=== PATIENT | female | born 1950 | race Caucasian/White ===

== ENCOUNTER 2018-02-27 11:50 | Outpatient (CLI) | payer MEDICARE, OTHER ==
[~2018-02-27] VITALS: Ht 157.5 cm; Wt 88.6 kg
[2018-02-27] MEDS ORDERED: AMLO5TAB2 PO (12:11)
[2018-02-27] MEDS ORDERED: ASPI-999 PO (12:11)
[2018-02-27] MEDS ORDERED: FLAX1CAP6 PO (12:11)
[2018-02-27] MEDS ORDERED: DIAZ5TAB3 PO (12:11)
[2018-02-27] MEDS ORDERED: HYDR-3812 PO (12:11)
[2018-02-27] MEDS ORDERED: HYDR25TA4 PO (12:11)
[2018-02-27] MEDS ORDERED: CARV12.53 PO (12:11)
[2018-02-27] MEDS ORDERED: UBID100C44 PO (12:11)
[2018-02-27] MEDS ORDERED: CYCL10TA9 PO (12:11)
[2018-02-27 12:18] VITALS: BP 152/88
[2018-02-27] MEDS ORDERED: ASPI-983 PO (14:07)
[2018-02-27] MEDS ORDERED: FURO20TA4 PO (14:07)
[2018-03-02] MEDS ORDERED: FURO-125 PO (10:51)
== END 2018-02-27 14:49 | disposition home or self-care (01) ==
LOC: PREOP 11:50
PROVIDERS: ATTEND Orthopaedic Surgery
DX: Z01.818 Encounter for other preprocedural examination (principal)
CPT/HCPCS: 87081

== ENCOUNTER 2018-03-05 09:58 | Inpatient (IN) | payer OTHER, MEDICARE ==
[~2018-03-05] VITALS: Ht 157.5 cm; Wt 88.6 kg
[~2018-03-05 09:58] MED LIST: AMLO5TAB2 PO; ASPI-983 PO; ASPI-999 PO; CARV12.53 PO; CYCL10TA9 PO; DIAZ5TAB3 PO; FLAX1CAP6 PO; FURO-125 PO; FURO20TA4 PO; HYDR-3812 PO; HYDR25TA4 PO; UBID100C44 PO
[2018-03-05] MEDS ORDERED: LACTATED RINGERS 1,000 ML IV PRN (10:03)
[2018-03-05 10:10] VITALS: BP 189/89
[2018-03-05] MEDS ORDERED: ceFAZolin 2 GM IV Premixed 50 ML IV ONE (10:15)
[2018-03-05] MEDS ORDERED: BACITRACIN 100,000 UNIT/NS 1000 ML POUR BOTTLE IR ONE ×2 (10:15)
[2018-03-05] MEDS ORDERED: NS IV 500 ML 500 ML IV ONE (10:20)
[2018-03-05] MEDS ORDERED: SUCCINYLCHOLINE INJ 100 MG/5 ML SYR ONE (10:57)
[2018-03-05] MEDS ORDERED: LIDOCAINE PF 2% 5 ML (XYLOCAINE) VIAL ONE (10:57)
[2018-03-05] MEDS ORDERED: DEXAMETHASONE 10 MG/ML (DECADRON) 1 ML VIAL ONE (10:57)
[2018-03-05] MEDS ORDERED: ROCURONIUM 10 MG/ML 5 ML SYRINGE IV ONE (10:57)
[2018-03-05] MEDS ORDERED: ONDANSETRON 4 MG/2 ML (SDV) Z0FRAN ONE (10:57)
[2018-03-05] MEDS ORDERED: PROPOFOL INJECTION 0 ML IV ONE (10:57)
[2018-03-05] MEDS ORDERED: MIDAZOLAM 2 MG/2 ML (VERSED) VIAL ONE (10:58)
[2018-03-05] MEDS ORDERED: fentaNYL INJECTION 100 MCG/2 ML AMP ONE ×3 (10:58→12:59)
[2018-03-05] MEDS ORDERED: PROPOFOL INJECTION 50 ML IV ONE (11:02)
[2018-03-05] MEDS ORDERED: SEVOFLURANE (ULTANE) 15 ML INHAL SOLN ONE ×3 (12:56→13:51)
[2018-03-05] MEDS ORDERED: proPOfol 200 MG/20 ML (DIPRIVAN) VIAL IV ONE ×3 (13:20→14:01)
[2018-03-05] MEDS ORDERED: morphine INJ 10 MG/ML 1ML (SYR OR VIAL) IM PRN (14:45)
[2018-03-05] MEDS ORDERED: NON-FORMULARY MEDICATION 1 EA EA (Diazepam 5 MG) PO PRN (14:45)
[2018-03-05] MEDS ORDERED: DOCUSATE SODIUM 100 MG (COLACE) CAP PO PRN (14:45)
[2018-03-05] MEDS ORDERED: BISACODYL 5 MG (DULCOLAX) TABLET PO PRN (14:45)
[2018-03-05] MEDS ORDERED: FAMOTIDINE 20 MG (PEPCID) TABLET PO SCH (14:45)
[2018-03-05] MEDS ORDERED: oxyCODONE/APAP 5/325MG (PERCOCET 5) TABLET PO PRN (14:45)
[2018-03-05] MEDS ORDERED: ONDANSETRON 4 MG/2 ML (SDV) Z0FRAN IV PRN (14:45)
[2018-03-05] MEDS ORDERED: HYDROcodone/APAP 5 MG/325 MG (LORTAB) TAB PO PRN (14:45)
[2018-03-05] MEDS ORDERED: BISACODYL 10 MG SUPP (DULCOLAX) PR PRN (14:45)
[2018-03-05] MEDS ORDERED: ACETAMINOPHEN 325 MG TABLET/CAPLET (TYLENOL) PO PRN ×2 (14:45→17:15)
[2018-03-05] MEDS ORDERED: morphine INJ 10 MG/ML 1ML (SYR OR VIAL) ONE (14:55)
[2018-03-05] MEDS ORDERED: ONDANSETRON 4 MG/2 ML (SDV) Z0FRAN IVP PRN (15:00)
[2018-03-05] MEDS ORDERED: fentaNYL INJECTION 100 MCG/2 ML AMP IVP PRN (15:00)
[2018-03-05] MEDS ORDERED: HYDROmorphone 1 MG/ML (DILAUDID) 1 ML SYRINGE IV PRN (15:00)
[2018-03-05] MEDS ORDERED: MEPERIDINE (DEMEROL) INJ 50 MG/ML IVP PRN (15:00)
[2018-03-05] MEDS ORDERED: HYDROmorphone 1 MG/ML (DILAUDID) 1 ML SYRINGE ONE (15:07)
[2018-03-05 15:45] VITALS: BP 152/70
--- NOTE | 2018-03-05 16:04 | Diagnostic Imaging Report ---
INDICATION: Cervical spine surgery. FINDINGS: Fluoroscopy was provided in the OR during cervical spine surgery. A total of 15 seconds of fluoroscopy was utilized. Four images were obtained. There appear to be changes of C5 through C7 ACDF. IMPRESSION: Fluoroscopy for cervical spine surgery. Dictated by: Dictated on workstation # [id number]
[2018-03-05] MEDS ORDERED: DIAZEPAM 5 MG (VALIUM) TABLET PO PRN (17:00)
[2018-03-05] MEDS: ceFAZolin INJECTION 1,000 MG in NS (IVPB) 50 ML IV SCH (18:23)
[2018-03-05 19:00] VITALS: BP 183/79
--- NOTE | 2018-03-05 19:37 | OPERATIVE REPORT ---
DATE OF SERVICE: 03/05/2018 SURGEON: Omaira Lerma DO HEAT TREAT TECHNICIAN: ALIYAH Robbins This is a medically necessary procedure. An business support assistant is necessary for retraction of vital neurovascular structures. Without an business support assistant, the procedure would not be possible. PREOPERATIVE DIAGNOSES: 1. Cervical myelopathy. 2. Cervical radiculopathy. 3. Cervical stenosis (central, foraminal, bony, subluxation). POSTOPERATIVE DIAGNOSES: 1. Cervical myelopathy. 2. Cervical radiculopathy. 3. Cervical stenosis (central, foraminal, bony, subluxation). PROCEDURE PERFORMED: 1. C5-C6, C6-C7 ACDF. 2. C6 corpectomy. 3. Application of PEEK interbody spacer C5-C7. 4. Application of anterior instrumentation from C5-C7. 5. Use of human allograft for spine. 6. Use of local bone autograft. COMPLICATIONS: None. SPECIMENS SENT: None. DRAINS PLACED: Lance-Hartmann. ESTIMATED BLOOD LOSS: Minimal. HISTORY OF PRESENT ILLNESS: The patient is a very pleasant 67-year-old female with a history of cervical myelopathy and myelomalacia and severe stenosis on MRI. She failed conservative measures and did wish to proceed with operative intervention. She understood the risks and benefits of surgery and wished to proceed. DESCRIPTION OF PROCEDURE: The patient was identified by name on wrist band in the preoperative holding area. Her operative site was signed, consent was signed. SCDs were placed. Dermabond was hooked up and antibiotics were started. She was taken to the operating room theater and placed under general endotracheal tube anesthesia and transferred on to the operating room table in supine position. Traction was placed across her shoulders. Her head was placed in the neutral position. She was prepped and draped in usual sterile fashion. Formal timeout was conducted. At this point, lateral x-ray was brought in and I marked out the extent of my incision. I then made an oblique incision over the medial aspect of the left sternocleidomastoid. I then proceeded with a standard anterior cervical approach, placed a self-retaining retractor and I verified under lateral x-ray that I was at the C5-C6 disk space. At this point, I placed [place] pin distraction across the disk space and I performed a complete diskectomy. I took down the posterior longitudinal ligament. I then repeated this process at C6-7. At this point, I corpectomized the body of C6 and I saved that bone. I took down the posterior longitudinal ligament in its entirety. Once I was finished with the decompression, I sized and chose the appropriate corpectomy PEEK spacer. I packed it with local bone autograft and human allograft and I seated it into the void between C5 and C7. I then chose the appropriate size plate. I placed the plate in the midline position and I placed screws into the body of C5 and screws in the body of C7. I final tightened those screws. Final AP and lateral x-ray demonstrated appropriate positioning of the hardware. I then placed a drain alongside the plate. I sewed the drain into place to maintain hemostasis, irrigated the wound and closed utilizing 3-0 Vicryl followed by running 3-0 subcuticular stitch. I applied dressings, placed the patient in a hard collar, took the patient in the supine position to the PACU where she awoke without incident. She tolerated the procedure well. PLAN: At this time is to admit the patient, administered IV antibiotics to control her pain. She will be in a brace while out of bed. Thank you very much. Please note that I used NuV[employer] for everything on this. Job ID: [id number] DocumentID: [id number] Dictated Date: 03/05/2018 14:21:17 Dance Instructor Date: 03/05/2018 19:37:08 Dictated By: OMAIRA LERMA DO
[2018-03-05] MEDS ORDERED: NON-FORMULARY MEDICATION 1 EA EA (Amlodipine Besylate 5 MG) PO SCH (21:00)
[2018-03-05] MEDS: CARVEDILOL 12.5 MG (COREG) TABLET PO SCH (22:15)
[2018-03-05] MEDS: amLODIPine 5 MG (NORVASC) TAB PO SCH (22:15)
[2018-03-05] MEDS: SENNOSIDES 8.6 MG (SENOKOT) TAB PO SCH (22:15)
[2018-03-05] MEDS: CYCLOBENZAPRINE 10 MG (FLEXERIL) TAB PO SCH (22:15)
[2018-03-05] MEDS: FAMOTIDINE 20 MG (PEPCID) TABLET PO SCH (22:15)
[2018-03-06] VITALS: BP 131/59
[2018-03-06] MEDS: ceFAZolin INJECTION 1,000 MG in NS (IVPB) 50 ML IV SCH ×2 (02:30→11:02)
[2018-03-06 04:00] VITALS: BP 179/79
[2018-03-06] MEDS ORDERED: OXYC-471 PO (06:05)
[2018-03-06] MEDS ORDERED: MULTIVIT W/MINERALS TAB (THERAGRAN M) PO SCH (07:00)
[2018-03-06 08:00] VITALS: BP 161/74
--- NOTE | 2018-03-06 08:50 | Discharge Summary ---
Diagnosis/Chief Complaint Date of Admission March 05, 2018 at 09:58 Date of Discharge Mar 06 2018 Admission Diagnosis Admission Diagnosis cervical stenosis with myelopathy Discharge Diagnosis same Reason Hospital Visit C5-7 acdf with c6 corpectomy Discharge Summary Hospital Course Hospital Course Mrs Amanda rendon is a patient we have followed with c/o LUE cervical radiculopathy and myelopathy with severe central stenosis. She failed to improve with conservative measures and was admitted for ACDF. She tolerated this well and was doing well on POD #1. Her vitals were stable and pain was controlled. She was dismissed home on POD #1 x-rays reviewed showing stable C5-7 acdf with anterior plating, C6 corpectomy Procedures None. Discharge Physical Examination Allergies: Coded Allergies: evolocumab (Verified Allergy, Intermediate, BACK SPASMS/LEG CRAMPS, ) Arkvxhg-Gwo-Iyu Reductase Inhibitor (Verified Allergy, Mild, LEG CRAMPS, ) Tetracyclines (Verified Allergy, Mild, N/V, 02/27/18) duloxetine (Verified Allergy, Mild, TACHYCARDIA, 02/27/18) latex (Verified Allergy, Mild, ITCHING, 02/27/18) pregabalin (Verified Allergy, Mild, SHAKES, 02/27/18) sulfamethoxazole (Verified Allergy, Mild, N/V, 02/27/18) trimethoprim (Verified Allergy, Mild, N/V, 02/27/18) Vitals & I&Os Vital Signs Date Time Temp Pulse Resp B/P (MAP) Pulse Ox O2 Delivery O2 Flow Rate FiO2 03/06/18 08:00 97.2 79 18 161/74 (103) 96 Room Air 03/05/18 16:00 2.00 General Appearance: Alert, Oriented X3, No Acute Distress Respiratory: Normal Air Movement Extremities: No Cyanosis, No Edema, Normal Pulses Skin: No Rashes, No Breakdown Neuro: Normal Gait, Normal Speech, Strength at 5/5 X4 Ext Discharge Home Medications Reviewed and agree with Discharge Medication list on patient's Discharge Instruction sheet Instructions to Patient/Family Please see electronic discharge instructions given to patient. Clinical Quality Measures DVT/VTE Risk/Contraindication: Risk Factor Score Per Nursin RFS Level Per Nursing on Admit: 4+=Very High PREM MENESES March 06, 2018 08:50
[2018-03-06] MEDS ORDERED: FUROSEMIDE 20 MG (LASIX) TAB PO SCH ×2 (09:00)
[2018-03-06] MEDS: SENNOSIDES 8.6 MG (SENOKOT) TAB PO SCH (09:13)
[2018-03-06] MEDS: amLODIPine 5 MG (NORVASC) TAB PO SCH (09:13)
[2018-03-06] MEDS: CARVEDILOL 12.5 MG (COREG) TABLET PO SCH (09:13)
[2018-03-06] MEDS: FAMOTIDINE 20 MG (PEPCID) TABLET PO SCH (09:13)
[2018-03-06] MEDS: CYCLOBENZAPRINE 10 MG (FLEXERIL) TAB PO SCH (09:13)
--- NOTE | 2018-03-06 09:32 | Diagnostic Imaging Report ---
INDICATION: Postop cervical spine fusion. EXAMINATION: AP, lateral, and odontoid views of the cervical spine.. CORRELATION STUDY: None. FINDINGS: Postop changes of the cervical spine are present. This includes what appears to be corpectomy changes at the C6-C7 level with an anterior plate and screws at the C5 and T1 levels. The inferior extent of the hardware and surgical changes is limited in visualization. The visualized portions appear relatively anatomic. There is slight anterolisthesis of C4 on C5 of approximately 2 mm. The prevertebral soft tissues are very slightly prominent. IMPRESSION: Surgical changes of anterior cervical spinal fusion of C5 through T1 bridging apparent corpectomy changes at the C6 and C7 levels. The alignment appears to be relatively anatomic. Dictated by: Dictated on workstation # [id number]
--- NOTE | 2018-03-06 10:24 | Physical Therapy Evaluation ---
PT Evaluation-General Medical Diagnosis Admission Date March 05, 2018 at 09:58 Medical Diagnosis: cervical myelopathy;radiculopathy Onset Date: March 05, 2018 Therapy Diagnosis Therapy Diagnosis: abn gait Height/Weight Height (Feet): 5 Height (Inches): 2.00 Weight (Pounds): 195 Weight (Ounces): 6.0 Precautions Precautions/Isolations: Standard Precautions Weight Bear Status Right Lower Extremity: Right Full Weight Bearing Left Lower Extremity: Left Full Weight Bearing Referral Physician: Jimbo Nelson Reason for Referral: Evaluation/Treatment Referral Comments Cervical collar on when up Medical History Pertinent Medical History: HTN Additional Medical History anxiety Current History Cervical spine myelopathy, radiculopathy, and stenosis. Post C5-6 6-7 ACDF. Reviewed History: Yes Social History Home: Single Level Current Living Status: Spouse Entry Into Home: Stairs With Railing Prior/Core FIM Prior Level of Function Functional [place] Measure 0=Not Assessed/NA 4=Minimal Assistance 1=Total Assistance 5=Supervision or Setup 2=Maximal Assistance 6=Modified [place] 3=Moderate Assistance 7=Complete [place] Pt was indep at [facility] [address] PT Evaluation-Current Subjective Agreeable to PT. Feels ready to go home. No complaints. Objective Patient Orientation: Person, Place, Time, Situation Problem Solving: Good ROM/Strength ROM Lower Extremities WNL Strength Lower Extremities WNL Integumentary/Posture Integumentary refer to nursing notes. Bowel Incontinence: No Bladder Incontinence: No Posture normal and symmetrical Neuromuscular (Tone, Coordination, Reflexes) intact and functional Sensory Vision: Functional Hearing: Functional Hand Dominance: Right Sensation Right Lower Extremit: Intact Sensation Left Lower Extremity: Intact Transfers Functional [place] Measure 0=Not Assessed/NA 4=Minimal Assistance 1=Total Assistance 5=Supervision or Setup 2=Maximal Assistance 6=Modified [place] 3=Moderate Assistance 7=Complete [place] Transfers (B, C, W/C) (FIM): 6 Sit to/from Stand: 6 pt had gotten herself out of bed and was sitting in the chair when this PT arrived. Gait Mode of Locomotion: Walk Anticipated Mode of Locomotion: Walk Gait (FIM): 5 Distance (FIM): 3=150 ft Gait Assistive Device: None Comments/Gait Description Pt ambulated 250 ft with occas CUSTOMER SUPPORT ASSISTANT and supervision. She used the de la cruz rail as needed. No noted LOB. Pt up in room moving around without assist. Cervical collar in situ when up. Balance Sitting Static: Good Sitting Dynamic: Good Standing Static: Good Standing Dynamic: Good Treatment Gait and safety training. Education on use of the cervical collar to be on when up. Education on the purpose of the collar. Assessment/Needs Pt is safe with mobility. Pt is indep with transfers but supervision with gait. Rehab Potential: Good PT Brand Marketing Intern Goals Fdc Goals PT Fdc Goals Time Frame: March 08, 2018 Transfers (B,C,W/C) (FIM): 7 Gait (FIM): 7 Gait Assistive Device: None PT Plan Problem List Problem List: Activity Tolerance, Functional Strength, Safety Treatment/Plan Treatment Plan: Continue Plan of Care Treatment Plan: Education, Functional Activity Emma, Gait, Safety, Transfers Treatment Duration: March 08, 2018 Frequency: 6 times per week Estimated Hrs Per Day: .25 hour per day Patient and/or Family Agrees t: Yes Safety Risks/Education Patient Education: Reviewed Precautions, Reviewed Don/Doff Brace, Safety Issues Teaching Recipient: Patient Teaching Methods: Demonstration, Discussion Response to Teaching: Return Demonstration instructed pt to wear brace when OOB. Time/GCodes Time In: 930 Time Out: 956 Total Billed Treatment Time: 26 Total Billed Treatment visit EVM 15 GT 11 DUYEN QUINN PT March 06, 2018 10:24
[2018-03-06 12:18] VITALS: BP 161/74
--- NOTE | 2018-03-06 13:09 | Anesthesia-General Post-Op ---
General Patient Condition Mental Status/LOC: Same as Preop Cardiovascular: Satisfactory Nausea/Vomiting: Absent Respiratory: Satisfactory Pain: Controlled Complications: Absent Post Op Complications Complications None Follow Up Care/Instructions Patient Instructions None needed. Anesthesia/Patient Condition Patient Condition Patient is doing well, no complaints, stable vital signs, no apparent adverse anesthesia problems. No complications reported per nursing. D/C home per [facility] Criteria: Yes RAHUL NAJERA CRNA March 06, 2018 13:09
== END 2018-03-06 11:10 | disposition home or self-care (01) | DRG 472 ==
LOC: 4TH 09:58 → SURG 09:59 → 4TH 15:53
PROVIDERS: ADMIT Orthopaedic Surgery; ATTEND Orthopaedic Surgery
PROC: 0RG20A0 Fusion of 2 or more Cervical Vertebral Joints with Interbody Fusion Device, Anterior Approach, Anterior Column, Open Approach (ICD-10-PCS; principal; 2018-03-05 12:10)
DX: M48.02 Spinal stenosis, cervical region (principal); M47.12 Other spondylosis with myelopathy, cervical region; M54.12 Radiculopathy, cervical region; I42.9 Cardiomyopathy, unspecified; I25.10 Atherosclerotic heart disease of native coronary artery without angina pectoris; I10 Essential (primary) hypertension; E78.5 Hyperlipidemia, unspecified; Z86.73 Personal history of transient ischemic attack (TIA), and cerebral infarction without residual deficits; Z79.82 Long term (current) use of aspirin
CPT/HCPCS: 72040; 94664

== ENCOUNTER 2018-06-19 08:32 | Outpatient (CLI) | payer MEDICARE ==
[~2018-06-19] VITALS: Ht 157.5 cm; Wt 83.0 kg
[~2018-06-19 08:32] MED LIST changes: -AMLO5TAB2 PO; +AMLO5TAB7 PO; +OXYC-471 PO
[2018-06-19 08:44] VITALS: BP 135/75
== END 2018-06-19 09:05 | disposition home or self-care (01) ==
LOC: PREOP 08:32
PROVIDERS: ATTEND Orthopaedic Surgery
DX: Z01.818 Encounter for other preprocedural examination (principal)
CPT/HCPCS: 87081

== ENCOUNTER 2019-01-23 10:52 | Outpatient (CLI) | payer MEDICARE ==
[~2019-01-23] VITALS: Ht 157.5 cm; Wt 78.5 kg
[~2019-01-23 10:52] MED LIST changes: -AMLO5TAB7 PO; +AMLO5TAB9 PO
[2019-01-23 14:14] VITALS: BP 146/77
[2019-01-23 14:53] LABS: BASOPHILS # (AUTO) 0.1 10^3/uL (0.0-0.1); BASOPHILS % (AUTO) 1 % (0-10); EOSINOPHILS # (AUTO) 0.6 10^3/uL (0.0-0.3); EOSINOPHILS % (AUTO) 8 % (0-10); HEMATOCRIT 40 % (35-52); LYMPHOCYTES # (AUTO) 2.3 X 10^3 (1.0-4.0); LYMPHOCYTES % (AUTO) 31 % (12-44); MEAN CORPUSCULAR HEMOGLOBIN 33 PG (25-34); MEAN CORPUSCULAR HGB CONC 35 G/DL (32-36); MEAN CORPUSCULAR VOLUME 92 FL (80-99); MEAN PLATELET VOLUME 9.2 FL (7.4-10.4); MONOCYTES # (AUTO) 0.7 X 10^3 (0.0-1.0); MONOCYTES % (AUTO) 10 % (0-12); NEUTROPHILS # (AUTO) 3.9 X 10^3 (1.8-7.8); NEUTROPHILS % (AUTO) 52 % (42-75); PLATELET COUNT 263 10^3/uL (130-400); RED CELL DISTRIBUTION WIDTH 13.7 % (10.0-14.5); WHITE BLOOD COUNT 7.5 10^3/uL (4.3-11.0)
[2019-01-23] MEDS ORDERED: METF-399 PO (15:05)
[2019-01-23 15:10] LABS: BUN/CREATININE RATIO 23; CALCIUM 10.1 MG/DL (8.5-10.1); CARBON DIOXIDE 26 MMOL/L (21-32); CHLORIDE 100 MMOL/L (98-107); CREATININE SERUM 0.91 MG/DL (0.60-1.30); GFR ESTIMATED > 60; GLUCOSE 101 MG/DL (70-105); POTASSIUM 3.5 MMOL/L (3.6-5.0); SODIUM 138 MMOL/L (135-145)
== END 2019-01-23 14:30 | disposition home or self-care (01) ==
LOC: PREOP 10:52
PROVIDERS: ATTEND Orthopaedic Surgery
DX: Z01.812 Encounter for preprocedural laboratory examination (principal); Z11.2 Encounter for screening for other bacterial diseases; M43.16 Spondylolisthesis, lumbar region
CPT/HCPCS: 36415; 80048; 85025; 86850; 86900; 86901; 87081

== ENCOUNTER 2019-01-28 08:50 | Inpatient (IN) | payer MEDICARE ==
[~2019-01-28] VITALS: Ht 157.5 cm; Wt 78.5 kg
[2019-01-28] MEDS: LACTATED RINGERS 1,000 ML IV SCH ×3 (08:45→12:50)
[~2019-01-28 08:50] MED LIST changes: +LACTATED RINGERS 1,000 ML IV PRN; +METF-399 PO
[2019-01-28 09:00] VITALS: BP 160/84
[2019-01-28] MEDS ORDERED: BACITRACIN 100,000 UNIT/NS 1000 ML POUR BOTTLE IR ONE ×2 (09:15)
[2019-01-28] MEDS ORDERED: ceFAZolin 2 GM IV Premixed 50 ML IV ONE (09:15)
[2019-01-28] MEDS ORDERED: LIDOCAINE JELLY 2% 6 ML SYRINGE ONE ×4 (09:31→13:53)
[2019-01-28] MEDS ORDERED: fentaNYL INJECTION 100 MCG/2 ML AMP ONE (09:36)
[2019-01-28] MEDS ORDERED: MIDAZOLAM 2 MG/2 ML (VERSED) VIAL ONE (09:36)
[2019-01-28] MEDS ORDERED: BACITRACIN OINTMENT 28 GM TUBE ONE (10:04)
[2019-01-28] MEDS ORDERED: BUP/EPI 0.5% 1:200,000 (SENSORCAINE) 30 ML VIAL ONE (10:04)
[2019-01-28] MEDS ORDERED: VANCOMYCIN 1000 MG/VIAL ONE (10:04)
[2019-01-28] MEDS ORDERED: proPOfol 200 MG/20 ML (DIPRIVAN) VIAL IV ONE (11:57)
[2019-01-28] MEDS ORDERED: ONDANSETRON 4 MG/2 ML (SDV) Z0FRAN ONE (11:57)
[2019-01-28] MEDS ORDERED: ISOFLURANE (FORANE) 15 ML/15 MIN INHALATION ONE ×15 (11:57→14:05)
[2019-01-28] MEDS ORDERED: SUCCINYLCHOLINE INJ 100 MG/5 ML SYR ONE (11:57)
[2019-01-28] MEDS ORDERED: DEXMEDETOMIDINE 200 MCG/2 ML (PRECEDEX) VIAL IV ONE (11:57)
[2019-01-28] MEDS ORDERED: ROCURONIUM 10 MG/ML 5 ML SYRINGE IV ONE (11:57)
[2019-01-28] MEDS ORDERED: LIDOCAINE PF 2% 5 ML (XYLOCAINE) VIAL ONE (11:57)
[2019-01-28] MEDS ORDERED: LACTATED RINGERS 1,000 ML IV ONE (11:57)
[2019-01-28] MEDS ORDERED: NEOSTIGMINE 1 MG/ML 5 ML SYRINGE ONE (13:51)
[2019-01-28] MEDS ORDERED: GLYCOPYRROLATE 0.2 MG/ML (ROBINUL) 2 ML VIAL ONE (13:51)
[2019-01-28] MEDS ORDERED: NON-FORMULARY MEDICATION 1 EA EA (Diazepam 5 MG) PO PRN (14:15)
[2019-01-28] MEDS ORDERED: ONDANSETRON 4 MG/2 ML (SDV) Z0FRAN IV PRN (14:15)
[2019-01-28] MEDS ORDERED: CYCLOBENZAPRINE 10 MG (FLEXERIL) TAB PO PRN (14:15)
[2019-01-28] MEDS ORDERED: ACETAMINOPHEN 325 MG TABLET PO PRN (14:15)
[2019-01-28] MEDS ORDERED: oxyCODONE/APAP 5/325MG (PERCOCET 5) TABLET PO PRN (14:15)
[2019-01-28] MEDS ORDERED: fentaNYL INJECTION 100 MCG/2 ML AMP IVP ONE (14:15)
[2019-01-28] MEDS ORDERED: ONDANSETRON 4 MG/2 ML (SDV) Z0FRAN IVP PRN (14:30)
[2019-01-28] MEDS ORDERED: HYDROmorphone 2 MG/ML VIAL (DILAUDID) IV ONE (14:30)
[2019-01-28] MEDS ORDERED: morphine INJ 10 MG/ML 1ML (SYR OR VIAL) IVP ONE (14:30)
[2019-01-28] MEDS ORDERED: PROMETHAZINE INJ 25 MG/ML (PHENERGAN) AMP IVP ONE (14:30)
[2019-01-28] MEDS ORDERED: MEPERIDINE (DEMEROL) INJ 50 MG/ML IVP ONE (14:30)
[2019-01-28 15:35] VITALS: BP 111/76
[2019-01-28] MEDS: NS IV 1000 ML 1,000 ML IV SCH (16:54)
[2019-01-28] MEDS: HYDROcodone/APAP 5 MG/325 MG (LORTAB) TAB PO PRN ×2 (16:54→21:27)
--- NOTE | 2019-01-28 16:54 | Diagnostic Imaging Report ---
INDICATION: Fusion. TECHNIQUE: Intraoperative fluoroscopy views were obtained during lumbar fusion surgery per Dr. Jacob Lerma. FINDINGS: A disc prosthesis is visualized at L4-5 in good alignment. Pedicle screws are visualized at L4 and L5. 1 minute and 3 seconds of fluoroscopy time was used. IMPRESSION: Intraoperative fluoroscopy was used during lumbar fusion as above. Dictated by: Dictated on workstation # [id number]
[2019-01-28] MEDS ORDERED: DIAZEPAM 5 MG (VALIUM) TABLET PO PRN (17:00)
[2019-01-28] MEDS: ceFAZolin INJECTION 1,000 MG in WATER (STERILE) FOR INJECTION 10 ML IV SCH (18:40)
[2019-01-28 20:00] VITALS: BP 120/64
[2019-01-28] MEDS: DOCUSATE SODIUM 100 MG (COLACE) CAP PO SCH (20:41)
[2019-01-28] MEDS: SENNOSIDES 8.6 MG (SENOKOT) TAB PO SCH (20:42)
[2019-01-28] MEDS: amLODIPine 5 MG (NORVASC) TAB PO SCH (20:42)
[2019-01-28] MEDS: FAMOTIDINE 20 MG (PEPCID) TABLET PO SCH (20:42)
[2019-01-28] MEDS: CARVEDILOL 12.5 MG (COREG) TABLET PO SCH (21:00)
[2019-01-28] MEDS ORDERED: NON-FORMULARY MEDICATION 1 EA EA (Amlodipine Besylate 5 MG) PO SCH (21:00)
--- NOTE | 2019-01-29 00:59 | OPERATIVE REPORT ---
DATE OF SERVICE: 01/28/2019 SURGEON: Jacob Lerma DO BUSINESS ECONOMIST: ALIYAH Valladares This is a medically necessary procedure. Assistance was necessary for retraction of vital neurovascular structures. Without an assistant men's soccer coach, the procedure would not be possible. PREOPERATIVE DIAGNOSES: 1. Lumbar spinal stenosis (central, connective tissue, bony). 2. Lumbar radiculopathy. 3. Neurogenic claudication. POSTOPERATIVE DIAGNOSES: 1. Lumbar spinal stenosis (central, connective tissue, bony). 2. Lumbar radiculopathy. 3. Neurogenic claudication. PROCEDURES PERFORMED: 1. L4-L5 direct lateral interbody lumbar fusion. 2. Application of PEEK cage, L4-L5. 3. L3-L4, L4-L5 bilateral laminectomy with hemifacetectomies and foraminotomies. 4. Application of posterior instrumentation L4-L5. 5. Posterior spinal fusion L4-L5. 6. Use of human Allograft for spine. 7. Use of local bone autograft. COMPLICATIONS: None. SPECIMEN SENT: None. DRAINS PLACED: Hemovac. ANESTHESIA: General endotracheal tube anesthesia with local anesthetic. ESTIMATED BLOOD LOSS: See anesthesia records. HISTORY OF PRESENT ILLNESS: The patient is a very pleasant 68-year-old female who presented to me with severe neurogenic claudication. She failed all conservative measures. MRI did demonstrate severe and critical spinal stenosis at L4-L5 with moderate at L3-L4. She did wish to proceed with operative intervention. OPERATION: The patient was identified by name on wrist band in the preoperative holding area. Her operative site was signed, consent was signed. SCDs were placed. Neuro monitoring was hooked up and antibiotics were started. She was taken to the operating room theater and placed under general endotracheal tube anesthesia and then transferred to the operating room table in the lateral position with the left side up. She was secured to the table with 3 inch silk tape with her hips and knees flexed 30 degrees. She was then prepped and draped in the usual sterile fashion. Formal timeout was conducted. X-ray was then brought in and I made my incision over the L4-L5 disk space. I proceeded with standard lateral retroperitoneal approach docking a table-mounted tubular Medtronic retractor at the midpoint of the L4-L5 disk space. I then used EMG neuro monitoring to exclude the presence of any nerves. I performed an annulotomy followed by complete diskectomy. I then sized and chose the appropriate PEEK interbody cage packed with human allograft and seated in the midline position. I then maintained hemostasis, irrigated the wound and closed utilizing 0 Vicryl followed by 2-0 Vicryl followed by running 3-0 subcuticular stitch. I applied dressings. I then placed the patient in the prone position on a radiolucent Lance table. We reprepped the patient and draped the patient. I then made an midline lumbar incision over the L3-L4, L4-L5 levels. I proceeded with subperiosteal paraspinal muscular approach. At this point, I placed pedicle screws utilizing fluoroscopy. I did this bilaterally at L4 and L5. I tested them with EMG neuro monitoring. They were in good position. At this point, I performed a bilateral laminectomy with complete facetectomies and foraminotomies at L4-L5 and hemifacetectomies at L3-L4 with laminectomy. Once I was finished with the decompression, I placed a herbert on the left, a herbert on the right connecting the L4 and L5 _screw [place]____. I placed set screws and final tightened the set screws. I irrigated the wound thoroughly. I decorticated the remaining posterior bony elements and I packed a mixture of human allograft and local bone autograft in the left and right gutters to promote posterior spinal fusion. At this point, I placed a Hemovac drain subfascially and I closed the wound utilizing 0 Vicryls followed by 2-0 Vicryls, followed by running 3-0 subcuticular stitches. I applied dressings, took the patient in the supine position to the PACU where she awoke without incident. She tolerated the procedure well. The plan at this time is to admit the patient for IV antibiotics, IV pain control and postoperative monitoring. We will have her out of bed on postop day #1. Discontinue her drain and catheter per my protocol. Please note the instrumentation utilized was Medtronic also noted. Neuromonitoring was stable throughout the procedure. Job ID: [id number] DocumentID: [id number] Dictated Date: 01/28/2019 14:12:05 President [place] Date: 01/29/2019 00:59:19 Dictated By: DO RAVI ARCHER
[2019-01-29 01:09] VITALS: BP 106/62
[2019-01-29] MEDS: ceFAZolin INJECTION 1,000 MG in WATER (STERILE) FOR INJECTION 10 ML IV SCH ×2 (02:47→08:42)
[2019-01-29] MEDS: HYDROcodone/APAP 5 MG/325 MG (LORTAB) TAB PO PRN ×4 (02:48→20:28)
[2019-01-29 05:08] VITALS: BP 125/74
[2019-01-29] MEDS: NS IV 1000 ML 1,000 ML IV SCH (05:35)
[2019-01-29] MEDS: MULTIVIT W/MINERALS TAB (THERAGRAN M) PO SCH (05:37)
[2019-01-29 06:37] LABS: HEMOGLOBIN 10.3 G/DL (11.5-16.0); MEAN PLATELET VOLUME 9.6 FL (7.4-10.4); RED CELL DISTRIBUTION WIDTH 13.7 % (10.0-14.5); WHITE BLOOD COUNT 9.1 10^3/uL (4.3-11.0)
[2019-01-29 07:07] LABS: ALANINE AMINOTRANSFERASE 31 U/L (0-55); ALBUMIN 3.4 GM/DL (3.2-4.5); ALKALINE PHOSPHATASE 44 U/L (40-136); BILIRUBIN,TOTAL 0.4 MG/DL (0.1-1.0); BUN/CREATININE RATIO 14; CALCIUM 8.3 MG/DL (8.5-10.1); CARBON DIOXIDE 24 MMOL/L (21-32); CHLORIDE 105 MMOL/L (98-107); GFR ESTIMATED > 60; GLUCOSE 104 MG/DL (70-105); POTASSIUM 3.3 MMOL/L (3.6-5.0); SODIUM 138 MMOL/L (135-145); TOTAL PROTEIN 5.6 GM/DL (6.4-8.2)
[2019-01-29 08:25] VITALS: BP 127/68
[2019-01-29] MEDS: DOCUSATE SODIUM 100 MG (COLACE) CAP PO SCH ×2 (08:42→20:27)
[2019-01-29] MEDS: SENNOSIDES 8.6 MG (SENOKOT) TAB PO SCH ×2 (08:42→20:27)
[2019-01-29] MEDS: FUROSEMIDE 20 MG (LASIX) TAB PO SCH (08:43)
[2019-01-29] MEDS: FAMOTIDINE 20 MG (PEPCID) TABLET PO SCH ×2 (08:43→20:27)
[2019-01-29] MEDS: CARVEDILOL 12.5 MG (COREG) TABLET PO SCH ×2 (08:43→20:27)
[2019-01-29] MEDS: amLODIPine 5 MG (NORVASC) TAB PO SCH ×2 (08:43→20:27)
--- NOTE | 2019-01-29 09:23 | Physical Therapy Evaluation ---
PT Evaluation-General Medical Diagnosis Admission Date Jan 28, 2019 at 08:50 Medical Diagnosis: L4-5 fusion, L3-5 laminectomy Onset Date: Jan 28, 2019 Therapy Diagnosis Therapy Diagnosis: impaired mobility, strength, endurance Height/Weight Height (Feet): 5 Height (Inches): 2.00 Weight (Pounds): 173 Weight (Ounces): 0.0 Precautions Precautions/Isolations: Standard Precautions Weight Bear Status Right Lower Extremity: Right Full Weight Bearing Left Lower Extremity: Left Full Weight Bearing Referral Physician: Jimbo Nelson Reason for Referral: Evaluation/Treatment Medical History Pertinent Medical History: HTN Additional Medical History no medical history in chart yet. Social History Home: Single Level Current Living Status: Spouse Prior/Core FIM Prior Level of Function Therapy Code Descriptions/Definitions Functional [place] Measure: 0=Not Assessed/NA 4=Minimal Assistance 1=Total Assistance 5=Supervision or Setup 2=Maximal Assistance 6=Modified [place] 3=Moderate Assistance 7=Complete [place] Therapy Quality Codes: 6 Independent with activity with or without an assistive device 5 Patient requires set up or clean up by helper. Patient completes activity by themselves 4 Supervision or touching assist (CGA). [place] provide cues , steadying assist 3 The helper provides less than half the effort to complete the activity 2 The helper provides more than half the effort to complete the activity 1 Dependent. The helper does all the effort to complete an activity 7 Patient refused to complete or attempt activity 9 The patient did not perform the activity before the current illness or injury 88 Not attempted due to Medical conditions or safety concerns Functional Abilities and Goals: Independent: Patient completed the activities by him/herself, with or without an assistive device, with no assistance from a helper. Needed Some Help: Patient needed partial assistance from another person to complete activities. Dependent: A helper completed the activities for the patient. Unknown: Not Applicable: Bed Mobility: 7 Transfers (B,C,W/C) (FIM): 7 Gait: 7 Stairs: 7 Indoor Mobility (Ambulation): Independent Stairs: Independent PT Evaluation-Current Subjective Patient in bed pre tx, agrees to PT, has 8-9/10 pain in low back, would like to sit on the side of the bed to eat breakfast. Patient states she was measured for a back brace earlier but does not have one yet. Patient cannot ambulate without one. Pt/Family Goals to be independent at home Objective Patient Orientation: Person, Place, Situation Attachments: Oxygen, George Catheter, IV ROM/Strength ROM Lower Extremities WNL Strength Lower Extremities 4/5 gross bilateral lower extremities Neuromuscular (Tone, Coordination, Reflexes) NT Sensory Hearing: Functional Sensation Right Lower Extremit: Intact Sensation Left Lower Extremity: Intact Transfers Therapy Code Descriptions/Definitions Functional [place] Measure: 0=Not Assessed/NA 4=Minimal Assistance 1=Total Assistance 5=Supervision or Setup 2=Maximal Assistance 6=Modified [place] 3=Moderate Assistance 7=Complete [place] Transfers (B, C, W/C) (FIM): 4 Scootin Rollin Supine to/from Sit: 4 Min assist for rolling and supine to sit. Education on log roll. Balance Sitting Static: Normal Sitting Dynamic: Normal Treatment AP x10 Assessment/Needs Patient has impaired mobility, strength, endurance post lumbar surgery. She doesn't have a back brace yet. Patient sitting EOB post tx with nurse call, phone, tray, family in the room, eating breakfast. Rehab Potential: Fair PT Short Term Goals Short Term Goals Time Frame: Feb 05, 2019 Transfers (B,C,W/C) (FIM): 5 Gait (FIM): 5 Gait Distance Comment: 150' Gait Level of Assist: 5 Gait Assistive Device: FWW PT Plan Problem List Problem List: Activity Tolerance, Functional Strength, Safety, Balance, Gait, Transfer, Bed Mobility, ROM Treatment/Plan Treatment Plan: Continue Plan of Care Treatment Plan: Bed Mobility, Education, Functional Activity Emma, Functional Strength, Gait, Safety, Therapeutic Exercise, Transfers Treatment Duration: Feb 05, 2019 Frequency: 11 times per week Estimated Hrs Per Day: .25 hour per day (15-30') Patient and/or Family Agrees t: Yes Safety Risks/Education Patient Education: Transfer Techniques, Reviewed Precautions, Correct Positioning, Safety Issues Teaching Recipient: Patient Teaching Methods: Demonstration, Discussion Response to Teaching: Reinforcement Needed Discharge Recommendations Plan Patient will perform bed mobility and transfer training, balance and endurance training, functional strengthening, stair training, gait training, and education , to improve functional mobility and independence at home. Therapy D/C Recommendations: Home w/ Family Support Time/GCodes Time In: 0900 Time Out: 0912 Total Billed Treatment Time: 12 Total Billed Treatment 1 visit EVL 12' BEATA CAAL PT Jan 29, 2019 09:22
[2019-01-29 12:00] VITALS: BP 119/75
--- NOTE | 2019-01-29 12:18 | Diagnostic Imaging Report ---
INDICATION: Postop lumbar surgery. TECHNIQUE: AP, lateral, and spot imaging of the lumbar spine was performed. CORRELATION STUDY: None. FINDINGS: Posterior fusion hardware with transpedicular screws and interconnecting rods at the L4-L5 level. Intervertebral disc spacer device is present. Posterolateral bone graft material is present. Drainage tubing superimposed with the tip over the expected location of the operative bed. Lumbar spinal alignment is relatively anatomic. Nonfused segments of the intervertebral disc spaces demonstrate mild diffuse narrowing. Mild endplate lipping present. Vascular calcification of the abdominal aorta. IMPRESSION: Posterior fusion at the L4-L5 level. Drainage tubing present. Dictated by: Dictated on workstation # [id number]
--- NOTE | 2019-01-29 12:42 | Anesthesia-General Post-Op ---
General Patient Condition Mental Status/LOC: Same as Preop Cardiovascular: Satisfactory Nausea/Vomiting: Absent Respiratory: Satisfactory Pain: Controlled Complications: Absent Post Op Complications Complications None Follow Up Care/Instructions Patient Instructions None needed. Anesthesia/Patient Condition Patient Condition Patient is doing well, no complaints, stable vital signs, no apparent adverse anesthesia problems. No complications reported per nursing. TJ SAUNDERS CRNA Jan 29, 2019 12:42
--- NOTE | 2019-01-29 13:23 | Physical Therapy Daily Note ---
PT Daily Note-Current Subjective Patient in bed pre tx, agrees to PT, has pain of 8-9/10 and states she has already notified the nurse. Appearance Patient in bed post tx with nurse call, phone, tray, all needs met, in the room. Mental Status Patient Orientation: Person, Place, Situation Attachments: Oxygen, Drains, George Catheter, IV back brace Transfers Therapy Code Descriptions/Definitions Functional [place] Measure: 0=Not Assessed/NA 4=Minimal Assistance 1=Total Assistance 5=Supervision or Setup 2=Maximal Assistance 6=Modified [place] 3=Moderate Assistance 7=Complete [place] Therapy Quality Codes: 6 Independent with activity with or without an assistive device 5 Patient requires set up or clean up by helper. Patient completes activity by themselves 4 Supervision or touching assist (CGA). [place] provide cues , steadying assist 3 The helper provides less than half the effort to complete the activity 2 The helper provides more than half the effort to complete the activity 1 Dependent. The helper does all the effort to complete an activity 7 Patient refused to complete or attempt activity 9 The patient did not perform the activity before the current illness or injury 88 Not attempted due to Medical conditions or safety concerns Transfers (B, C, W/C) (FIM): 3 Scootin Rollin Supine to/from Sit: 3 Sit to/from Stand: 5 Bed to/from Chair: 5 Patient needs assist getting both legs into bed but she can do it with SBA going from supine to sit. Weight Bearing Right Lower Extremity: Right Full Weight Bearing Left Lower Extremity: Left Full Weight Bearing Gait Training Gait (FIM): 2 Distance: 100' Gait Level of Assist: 5 Gait Persons Needed: 1 Gait Assistive Device: FWW Antalgic ambulation, very slow, steady, no LOB. Treatments bed mobility (practiced log roll), transfers, ambulation Assessment Current Status: Fair Progress improving general mobility PT Short Term Goals Short Term Goals Time Frame: Feb 05, 2019 Transfers (B,C,W/C) (FIM): 5 Gait (FIM): 5 Gait Distance Comment: 150' Gait Level of Assist: 5 Gait Assistive Device: FWW PT Plan Problem List Problem List: Activity Tolerance, Functional Strength, Safety, Balance, Gait, Transfer, Bed Mobility, ROM Treatment/Plan Treatment Plan: Continue Plan of Care Treatment Plan: Bed Mobility, Education, Functional Activity Emma, Functional Strength, Gait, Safety, Therapeutic Exercise, Transfers Treatment Duration: Feb 05, 2019 Frequency: 11 times per week Estimated Hrs Per Day: .25 hour per day (15-30') Patient and/or Family Agrees t: Yes Safety Risks/Education Patient Education: Gait Training, Transfer Techniques, Reviewed Precautions, Correct Positioning, Reviewed Don/Doff Brace, Safety Issues Teaching Recipient: Patient Teaching Methods: Demonstration, Discussion Response to Teaching: Reinforcement Needed Time/GCodes Time In: 1303 Time Out: 1319 Total Billed Treatment Time: 16 Total Billed Treatment 1 visit GT 16' BEATA CAAL PT Jan 29, 2019 13:23
[2019-01-29 15:35] VITALS: BP 127/60
--- NOTE | 2019-01-29 16:56 | Progress Note (SOAP) ---
Subjective Date Seen by a Provider: Jan 29, 2019 Time Seen by a Provider: 16:54 Subjective/Events-last exam POD #1, s/p L4-5 DLIF, PSF, L3-5 laminectomy VSS, Afebrile States that her back and leg pain is improving Review of Systems Pulmonary: No Cough Gastrointestinal: No: Nausea, Vomiting Musculoskeletal: back pain; No: leg pain Neurological: No: Weakness, Incoordination, Change in speech, Confusion Objective Exam Vital Signs Date Time Temp Pulse Resp B/P (MAP) Pulse Ox O2 Delivery O2 Flow Rate FiO2 01/29/19 15:35 97.8 70 16 127/60 (82) 98 Nasal Cannula 3.00 01/29/19 15:10 97.8 01/29/19 12:00 97.4 65 20 119/75 (90) 99 Nasal Cannula 3.00 01/29/19 09:00 99 Nasal Cannula 3.00 01/29/19 08:25 97.8 74 20 127/68 (87) 98 Nasal Cannula 3.00 01/29/19 05:08 98.0 68 18 125/74 (91) 97 Nasal Cannula 3.00 01/29/19 01:09 96.6 56 18 106/62 (77) 98 Nasal Cannula 3.00 01/28/19 21:00 99 Nasal Cannula 3.00 01/28/19 20:24 Nasal Cannula 3.00 01/28/19 20:00 96.2 53 16 120/64 (82) 99 Nasal Cannula 3.00 I & O 01/29/19 07:00 Intake Total 3830 ml Output Total 2080 ml Balance 1750 ml Capillary Refill : General Appearance: No Apparent Distress Respiratory: No Respiratory Distress Cardiovascular: No Gallop, Normal Peripheral Pulses Gastrointestinal: non tender, soft, other (No Correia-Jules's sign) Extremity: Non Tender, No Calf Tenderness Neurologic/Psychiatric: Alert, Oriented x3, No Motor/Sensory Deficits, freight team associate II- XII Norm as Tested Skin: Other (Dressing CDI) Results Lab Laboratory Tests 01/29/19 05:52: White Blood Count 9.1, Red Blood Count 3.24L, Hemoglobin 10.3#L, Hematocrit 31L , Mean Corpuscular Volume 94, Mean Corpuscular Hemoglobin 32, Mean Corpuscular Hemoglobin Concent 34, Red Cell Distribution Width 13.7, Platelet Count 184, Mean Platelet Volume 9.6, Sodium Level 138, Potassium Level 3.3L, Chloride Level 105, Carbon Dioxide Level 24, Anion Gap 9, Blood Urea Nitrogen 11, Creatinine 0.80, Estimat Glomerular Filtration Rate > 60, BUN/Creatinine Ratio 14, Glucose Level 104, Calcium Level 8.3L, Corrected Calcium 8.8, Total Bilirubin 0.4, Aspartate Amino Transf (AST/SGOT) 34, Alanine Aminotransferase ( ALT/SGPT) 31, Alkaline Phosphatase 44, Total Protein 5.6L, Albumin 3.4 Assessment/Plan Assessment/Plan Assess & Plan/Chief Complaint Lumbar stenosis with radiculopathy S/P L4-5 DLIF, PSF, with L3-5 laminectomy DC dumont DC fluids Advance diet Clinical Quality Measures DVT/VTE Risk/Contraindication: Risk Factor Score Per Nursin RFS Level Per Nursing on Admit: 4+=Very High SRIRAM ROMEO Jan 29, 2019 16:56
[2019-01-29] MEDS: metFORMIN 500 MG (GLUCOPHAGE) TAB PO SCH (17:35)
[2019-01-29 20:00] VITALS: BP 135/62
[2019-01-30 00:15] VITALS: BP 103/61
[2019-01-30] MEDS: HYDROcodone/APAP 5 MG/325 MG (LORTAB) TAB PO PRN ×4 (00:28→16:41)
[2019-01-30 04:18] VITALS: BP 112/64
--- NOTE | 2019-01-30 04:52 | Progress Note (SOAP) ---
Subjective Date Seen by a Provider: Jan 30, 2019 Time Seen by a Provider: 04:50 Subjective/Events-last exam POD #2, s/p L4-5 DLIF, PSF, with L3-5 laminectomy VSS, Afebrile complains of back pain Review of Systems General: No Chills Pulmonary: No Cough Gastrointestinal: No: Nausea, Vomiting Musculoskeletal: back pain; No: leg pain Neurological: No: Weakness Objective Exam Vital Signs Date Time Temp Pulse Resp B/P (MAP) Pulse Ox O2 Delivery O2 Flow Rate FiO2 01/30/19 00:15 97.8 66 18 103/61 (75) 93 Nasal Cannula 1.00 01/29/19 23:59 Nasal Cannula 1.00 01/29/19 21:00 Room Air 01/29/19 20:00 98.7 71 20 135/62 (86) 95 Room Air 01/29/19 15:35 97.8 70 16 127/60 (82) 98 Nasal Cannula 3.00 01/29/19 15:10 97.8 01/29/19 12:00 97.4 65 20 119/75 (90) 99 Nasal Cannula 3.00 01/29/19 09:00 99 Nasal Cannula 3.00 01/29/19 08:25 97.8 74 20 127/68 (87) 98 Nasal Cannula 3.00 01/29/19 05:08 98.0 68 18 125/74 (91) 97 Nasal Cannula 3.00 I & O 01/30/19 07:00 Intake Total 4600 ml Output Total 2315 ml Balance 2285 ml Capillary Refill : General Appearance: No Apparent Distress Respiratory: No Accessory Muscle Use, No Respiratory Distress Cardiovascular: Normal Peripheral Pulses Gastrointestinal: non tender, soft, other (No Correia-Jules's sign ) Extremity: Normal Range of Motion, Non Tender, No Calf Tenderness Neurologic/Psychiatric: Alert, Oriented x3, No Motor/Sensory Deficits, Normal Mood/Affect, life enrichment director II-XII Norm as Tested Skin: Other (Dressing CDI) Results Lab Laboratory Tests 01/29/19 05:52: White Blood Count 9.1, Red Blood Count 3.24L, Hemoglobin 10.3#L, Hematocrit 31L , Mean Corpuscular Volume 94, Mean Corpuscular Hemoglobin 32, Mean Corpuscular Hemoglobin Concent 34, Red Cell Distribution Width 13.7, Platelet Count 184, Mean Platelet Volume 9.6, Sodium Level 138, Potassium Level 3.3L, Chloride Level 105, Carbon Dioxide Level 24, Anion Gap 9, Blood Urea Nitrogen 11, Creatinine 0.80, Estimat Glomerular Filtration Rate > 60, BUN/Creatinine Ratio 14, Glucose Level 104, Calcium Level 8.3L, Corrected Calcium 8.8, Total Bilirubin 0.4, Aspartate Amino Transf (AST/SGOT) 34, Alanine Aminotransferase ( ALT/SGPT) 31, Alkaline Phosphatase 44, Total Protein 5.6L, Albumin 3.4 Assessment/Plan Assessment/Plan Assess & Plan/Chief Complaint Lumbar stenosis with radiculopathy S/P L4-5 DLIF, PSF, with L3-5 laminectomy Continue to progress with PT Expect discharge tomorrow Clinical Quality Measures DVT/VTE Risk/Contraindication: Risk Factor Score Per Nursin RFS Level Per Nursing on Admit: 4+=Very High SRIRAM ROMEO Jan 30, 2019 04:52
[2019-01-30] MEDS: metFORMIN 500 MG (GLUCOPHAGE) TAB PO SCH ×2 (06:23→16:29)
[2019-01-30] MEDS: MULTIVIT W/MINERALS TAB (THERAGRAN M) PO SCH (06:23)
[2019-01-30 08:00] VITALS: BP 130/76
[2019-01-30] MEDS: FUROSEMIDE 20 MG (LASIX) TAB PO SCH (08:52)
[2019-01-30] MEDS: CARVEDILOL 12.5 MG (COREG) TABLET PO SCH ×2 (08:52→20:16)
[2019-01-30] MEDS: DOCUSATE SODIUM 100 MG (COLACE) CAP PO SCH ×2 (08:53→20:16)
[2019-01-30] MEDS: FAMOTIDINE 20 MG (PEPCID) TABLET PO SCH ×2 (08:53→20:16)
[2019-01-30] MEDS: SENNOSIDES 8.6 MG (SENOKOT) TAB PO SCH ×2 (08:53→20:16)
[2019-01-30] MEDS: amLODIPine 5 MG (NORVASC) TAB PO SCH ×2 (08:53→20:17)
--- NOTE | 2019-01-30 09:51 | Physical Therapy Daily Note ---
PT Daily Note-Current Subjective Patient in bed pre tx, agrees to PT, has 10/10 pain in low back and left leg, she says nurse is aware of pain and patient get pain meds during treatment. Appearance Patient in recliner post tx with nurse call, espinoza, in the room. Mental Status Patient Orientation: Person, Place, Situation Attachments: Drains back brace Transfers Therapy Code Descriptions/Definitions Functional [place] Measure: 0=Not Assessed/NA 4=Minimal Assistance 1=Total Assistance 5=Supervision or Setup 2=Maximal Assistance 6=Modified [place] 3=Moderate Assistance 7=Complete [place] Therapy Quality Codes: 6 Independent with activity with or without an assistive device 5 Patient requires set up or clean up by helper. Patient completes activity by themselves 4 Supervision or touching assist (CGA). [place] provide cues , steadying assist 3 The helper provides less than half the effort to complete the activity 2 The helper provides more than half the effort to complete the activity 1 Dependent. The helper does all the effort to complete an activity 7 Patient refused to complete or attempt activity 9 The patient did not perform the activity before the current illness or injury 88 Not attempted due to Medical conditions or safety concerns Transfers (B, C, W/C) (FIM): 4 Scootin Rollin Supine to/from Sit: 4 Sit to/from Stand: 5 Bed to/from Chair: 5 Min assist for supine to sit. Cues for hand placement and safety. Weight Bearing Right Lower Extremity: Right Full Weight Bearing Left Lower Extremity: Left Full Weight Bearing Gait Training Gait (FIM): 5 Distance: 200' Gait Level of Assist: 5 Gait Persons Needed: 1 Gait Assistive Device: FWW Slow, antalgic ambulation but steady, no LOB. Exercises Seated Therapy Exercises: Ankle pumps, Long arc quads Seated Reps: 15 Treatments bed mobility and transfers, ambulation, LE exercises Assessment Current Status: Fair Progress improving endurance PT Short Term Goals Short Term Goals Time Frame: Feb 05, 2019 Transfers (B,C,W/C) (FIM): 5 Gait (FIM): 5 Gait Distance Comment: 150' Gait Level of Assist: 5 Gait Assistive Device: FWW PT Plan Problem List Problem List: Activity Tolerance, Functional Strength, Safety, Balance, Gait, Transfer, Bed Mobility, ROM Treatment/Plan Treatment Plan: Continue Plan of Care Treatment Plan: Bed Mobility, Education, Functional Activity Emma, Functional Strength, Gait, Safety, Therapeutic Exercise, Transfers Treatment Duration: Feb 05, 2019 Frequency: 11 times per week Estimated Hrs Per Day: .25 hour per day (15-30') Patient and/or Family Agrees t: Yes Safety Risks/Education Patient Education: Gait Training, Transfer Techniques, Correct Positioning, Reviewed Don/Doff Brace, Safety Issues Teaching Recipient: Patient Teaching Methods: Demonstration, Discussion Response to Teaching: Reinforcement Needed Time/GCodes Time In: 30 Time Out: 0945 Total Billed Treatment Time: 15 Total Billed Treatment 1 visit GT 15' BEATA CAAL PT Jan 30, 2019 09:51
[2019-01-30 12:00] VITALS: BP 124/67
--- NOTE | 2019-01-30 13:49 | Physical Therapy Daily Note ---
PT Daily Note-Current Subjective Pt. in bathroom upon arrival. Agrees to Rx. States left side back and down in to left leg are painful, rates at 6/10 but states it improves with ambulation. Pain Numeric Pain Scale: 5-Moderate Pain Location: Left Location Body Site: Back Pain Description: Heavy Mental Status Patient Orientation: Normal For Age Attachments: Other-See Comments (aspen back brace) Transfers Therapy Code Descriptions/Definitions Functional [place] Measure: 0=Not Assessed/NA 4=Minimal Assistance 1=Total Assistance 5=Supervision or Setup 2=Maximal Assistance 6=Modified [place] 3=Moderate Assistance 7=Complete [place] Therapy Quality Codes: 6 Independent with activity with or without an assistive device 5 Patient requires set up or clean up by helper. Patient completes activity by themselves 4 Supervision or touching assist (CGA). [place] provide cues , steadying assist 3 The helper provides less than half the effort to complete the activity 2 The helper provides more than half the effort to complete the activity 1 Dependent. The helper does all the effort to complete an activity 7 Patient refused to complete or attempt activity 9 The patient did not perform the activity before the current illness or injury 88 Not attempted due to Medical conditions or safety concerns TRF on off toilet SBA Weight Bearing Right Lower Extremity: Right Full Weight Bearing Left Lower Extremity: Left Full Weight Bearing Gait Training Gait Assistive Device: FWW 350ft, 50 ft FWW SBA to CGA no LOB, slow, careful, equal step length, good stride length Exercises Supine Ex: Glut sets Supine Reps: 12 Seated Therapy Exercises: Ankle pumps, Long arc quads, Glut set Seated Reps: 12 Assessment Current Status: Good Progress PT Short Term Goals Short Term Goals Time Frame: Feb 05, 2019 Transfers (B,C,W/C) (FIM): 5 Gait (FIM): 5 Gait Distance Comment: 150' Gait Level of Assist: 5 Gait Assistive Device: FWW PT Plan Treatment/Plan Treatment Plan: Continue Plan of Care Treatment Plan: Bed Mobility, Education, Functional Activity Emma, Functional Strength, Gait, Safety, Therapeutic Exercise, Transfers Treatment Duration: Feb 05, 2019 Frequency: 11 times per week Estimated Hrs Per Day: .25 hour per day (15-30') Patient and/or Family Agrees t: Yes Safety Risks/Education Patient Education: Gait Training, Transfer Techniques, Correct Positioning, Safety Issues Teaching Recipient: Patient Teaching Methods: Demonstration, Discussion Response to Teaching: Verbalize Understanding, Return Demonstration, Reinforcement Needed Time/GCodes Time In: 1320 Time Out: 1345 Total Billed Treatment Time: 25 Total Billed Treatment 1,Gt15m,EX10m G Codes Necessary: SHONA Morse BANK ADVISOR Jan 30, 2019 13:49
[2019-01-30 16:00] VITALS: BP 125/71
[2019-01-30 20:00] VITALS: BP 113/74
[2019-01-31] VITALS: BP 113/69
[2019-01-31] MEDS: metFORMIN 500 MG (GLUCOPHAGE) TAB PO SCH (06:40)
[2019-01-31] MEDS: HYDROcodone/APAP 5 MG/325 MG (LORTAB) TAB PO PRN (06:40)
[2019-01-31] MEDS: MULTIVIT W/MINERALS TAB (THERAGRAN M) PO SCH (06:40)
[2019-01-31] MEDS ORDERED: OXYC1TAB87 PO (06:50)
[2019-01-31] MEDS ORDERED: CYCL10TA9 PO (06:50)
--- NOTE | 2019-01-31 06:53 | Discharge Inst-Simple/Standard ---
Discharge Inst-Standard Discharge Medications New, Converted or Re-Newed RX: RX on Chart Patient Instructions/Follow Up Plan of Care/Instructions/FU: keep incisions covered clean and dry dont bend lift twist push or pull ambulate several times a day incentive spirometry at home every hour while not up 10 lb weight restriction follow up in clinic in 2 weeks Activity as Tolerated: No Discharge Diet: Regular Diet Return to [facility] For: fever chills night sweats shortness of breath chest pain new onsent weakness PREM MENESES Jan 31, 2019 06:53
--- NOTE | 2019-01-31 06:58 | Discharge Summary ---
Diagnosis/Chief Complaint Date of Admission Jan 28, 2019 at 08:50 Date of Discharge 01/31/2019 Admission Diagnosis Admission Diagnosis lumbar stenosis with claudication Discharge Diagnosis same Reason Hospital Visit L4-5 DLIF, L3-5 laminectomy with L4-5 PSIF Discharge Summary Hospital Course Was the Problem List Reviewed?: Yes Hospital Course Chioma is a [age] ya/[age] WF who we have treated for some time. She failed to improve with conservative treatment and elected to proceed with lumbar surgery. She tolerated the procedure well and her post operative course was uneventful. She did continue to have LE pain post operatively and expected incisional pain. Neurogenic healing was discussed. She did work with PT and progressed. She was dismissed home on POD #3 Labs Laboratory Tests 01/28/19 08:47: Glucometer 158H 01/29/19 05:52: Red Blood Count 3.24L, Hemoglobin 10.3#L, Hematocrit 31L, Potassium Level 3.3L, Calcium Level 8.3L, Total Protein 5.6L Procedures None. Discharge Physical Examination Allergies: Coded Allergies: evolocumab (Verified Allergy, Intermediate, BACK SPASMS/LEG CRAMPS, ) Hvfukwq-Gto-Yoc Reductase Inhibitor (Verified Allergy, Mild, LEG CRAMPS, ) Tetracyclines (Verified Allergy, Mild, N/V, 02/27/18) duloxetine (Verified Allergy, Mild, TACHYCARDIA, 02/27/18) latex (Verified Allergy, Mild, ITCHING, 02/27/18) pregabalin (Verified Allergy, Mild, SHAKES, 02/27/18) sulfamethoxazole (Verified Allergy, Mild, N/V, 02/27/18) trimethoprim (Verified Allergy, Mild, N/V, 02/27/18) Vitals & I&Os Vital Signs Date Time Temp Pulse Resp B/P (MAP) Pulse Ox O2 Delivery O2 Flow Rate FiO2 01/31/19 00:00 98.5 69 16 113/69 (84) 92 Room Air 01/30/19 04:18 1.00 General Appearance: Alert, Oriented X3, Cooperative, No Acute Distress HEENT: Atraumatic Abdominal: No Tenderness, Other (no galindo turnes cullens ) Extremities: No Clubbing, No Edema Neuro: Normal Speech, Sensation Intact Psych/Mental Status: Mental Status NL Discussion & Recommendations Patient will be dismissed home instructions have been provided will see patient in clinic for 2 week post op visit Discharge Home Medications Reviewed and agree with Discharge Medication list on patient's Discharge Instruction sheet Instructions to Patient/Family Please see electronic discharge instructions given to patient. Clinical Quality Measures DVT/VTE Risk/Contraindication: Risk Factor Score Per Nursin RFS Level Per Nursing on Admit: 4+=Very High PREM MENESES Jan 31, 2019 06:58
[2019-01-31 08:00] VITALS: BP 139/63
--- NOTE | 2019-01-31 08:56 | Physical Therapy Daily Note ---
PT Daily Note-Current Subjective Pt reports she is still having some of the same pain as she did before the surgery as well as new surgical pain but is positive it will all decrease in time. Agreeable to PT session Pain Numeric Pain Scale: 9 Location Body Site: Back Pain Description: Sharp Comment: nurse aware Appearance upon arrival, Pt sitting up in recliner awake and alert Assisted pt to don and doff back brace Assisted pt to bathroom during treatment At end of session, pt supine in bed with call light, phone and bedside table within reach awaiting nurse to remove drain Mental Status Patient Orientation: Person, Place, Time, Eyes Open, Situation Attachments: Drains, Other-See Comments (back brace) Transfers Therapy Code Descriptions/Definitions Functional [place] Measure: 0=Not Assessed/NA 4=Minimal Assistance 1=Total Assistance 5=Supervision or Setup 2=Maximal Assistance 6=Modified [place] 3=Moderate Assistance 7=Complete [place] Therapy Quality Codes: 6 Independent with activity with or without an assistive device 5 Patient requires set up or clean up by helper. Patient completes activity by themselves 4 Supervision or touching assist (CGA). [place] provide cues , steadying assist 3 The helper provides less than half the effort to complete the activity 2 The helper provides more than half the effort to complete the activity 1 Dependent. The helper does all the effort to complete an activity 7 Patient refused to complete or attempt activity 9 The patient did not perform the activity before the current illness or injury 88 Not attempted due to Medical conditions or safety concerns Transfers (B, C, W/C) (FIM): 6 Scootin Rollin Supine to/from Sit: 6 Sit to/from Stand: 6 Pt demonstrated safe and correct bed mobility and transfer techniques during therapy session. Pt requested assist to lift LLE into bed, but with encouragement was able to perform independently, pain limits her but strength is there to perform the activity Weight Bearing Right Lower Extremity: Right Full Weight Bearing Left Lower Extremity: Left Full Weight Bearing Gait Training Gait (FIM): 6 Distance (FIM): 3=150 ft Distance: 428 Gait Level of Assist: 6 Gait Persons Needed: 1 Gait Assistive Device: FWW Provided SBA/supervision, pt demonstrating slightly decreased gait speed, step length and height but is steady without LOB. Slight forward flexed posture, able to correct with instruction. Back brace worn while up. Treatments Gait, transfers, bathroom, safety, functional mobility, activity tolerance, education Assessment Current Status: Good Progress Pt requires assist to don and doff back brace, states is her main caregiver and will be available to assist her with it at home. Pain limits her lifting LLE into bed but demonstrates she does have the strength to do it if she pushes through the pain and will be available to assist her if needed. Pt demonstrates safety with all transfers, gait with FWW and bathroom use PT Short Term Goals Short Term Goals Time Frame: Feb 05, 2019 Transfers (B,C,W/C) (FIM): 5 Gait (FIM): 5 Gait Distance Comment: 150' Gait Level of Assist: 5 Gait Assistive Device: FWW PT Plan Treatment/Plan Treatment Plan: Continue Plan of Care Treatment Plan: Bed Mobility, Education, Functional Activity Emma, Functional Strength, Gait, Safety, Therapeutic Exercise, Transfers pt to be discharged home today per pt report Treatment Duration: Feb 05, 2019 Frequency: 11 times per week Estimated Hrs Per Day: .25 hour per day (15-30') Patient and/or Family Agrees t: Yes Safety Risks/Education Patient Education: Gait Training, Transfer Techniques, Disease Process, Safety Issues Teaching Recipient: Patient Teaching Methods: Discussion Response to Teaching: Verbalize Understanding, Return Demonstration Time/GCodes Time In: 841 Time Out: 906 Total Billed Treatment Time: 25 Total Billed Treatment 1 visit, GT x 1 unit, FA x 1 unit BETSY VARGAS PTA Jan 31, 2019 08:56
[2019-01-31] MEDS: DOCUSATE SODIUM 100 MG (COLACE) CAP PO SCH (09:05)
[2019-01-31] MEDS: SENNOSIDES 8.6 MG (SENOKOT) TAB PO SCH (09:05)
[2019-01-31] MEDS: CARVEDILOL 12.5 MG (COREG) TABLET PO SCH (09:05)
[2019-01-31] MEDS: FUROSEMIDE 20 MG (LASIX) TAB PO SCH (09:05)
[2019-01-31] MEDS: FAMOTIDINE 20 MG (PEPCID) TABLET PO SCH (09:05)
[2019-01-31] MEDS: amLODIPine 5 MG (NORVASC) TAB PO SCH (09:05)
[2019-01-31 10:00] VITALS: BP 139/63
== END 2019-01-31 10:20 | disposition home or self-care (01) | DRG 454 ==
LOC: 4TH 08:50 → UNDOADMIN 08:50 → 4TH 08:51 → SURG 08:51 → EDSTATUS 10:30 → 4TH 15:25
PROVIDERS: ADMIT Orthopaedic Surgery; ATTEND Orthopaedic Surgery
PROC: 0SG0071 Fusion of Lumbar Vertebral Joint with Autologous Tissue Substitute, Posterior Approach, Posterior Column, Open Approach (ICD-10-PCS; 2019-01-28)
PROC: 01NB0ZZ Release Lumbar Nerve, Open Approach (ICD-10-PCS; 2019-01-28)
PROC: 0ST20ZZ Resection of Lumbar Vertebral Disc, Open Approach (ICD-10-PCS; 2019-01-28)
PROC: 0SG00A0 Fusion of Lumbar Vertebral Joint with Interbody Fusion Device, Anterior Approach, Anterior Column, Open Approach (ICD-10-PCS; principal; 2019-01-28 10:31)
DX: M48.062 Spinal stenosis, lumbar region with neurogenic claudication (principal); M54.16 Radiculopathy, lumbar region; I10 Essential (primary) hypertension; I42.9 Cardiomyopathy, unspecified; I25.10 Atherosclerotic heart disease of native coronary artery without angina pectoris; E11.9 Type 2 diabetes mellitus without complications; F32.9 Major depressive disorder, single episode, unspecified; F41.9 Anxiety disorder, unspecified; Z79.84 Long term (current) use of oral hypoglycemic drugs; Z86.73 Personal history of transient ischemic attack (TIA), and cerebral infarction without residual deficits
CPT/HCPCS: 36415; 72100; 80053; 82962; 85027; 86850; 86900; 86901; 94664